=== PATIENT | male | born 1970 | race Caucasian/White ===

== ENCOUNTER 2017-09-04 15:36 | Emergency (ER) | payer OTHER ==
[~2017-09-04] VITALS: Ht 182.9 cm; Wt 95.8 kg
[2017-09-04 15:42] VITALS: Ht 182.9 cm; Wt 95.8 kg
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
[2017-09-04] MEDS ORDERED: DIPHTH/TET/ACEL PERTUSS (ADULT) 0.5 ML VIAL IM* ONE (20:00)
[2017-09-04 20:14] VITALS: BP 118/71; PULSE 71; RESP 18
== END 2017-09-04 20:16 | disposition home or self-care (01) ==
LOC: FTE 15:36
DX: S01.81XA Laceration without foreign body of other part of head, initial encounter (principal); S19.9XXA Unspecified injury of neck, initial encounter; V43.52XA Car driver injured in collision with other type car in traffic accident, initial encounter; Z23 Encounter for immunization
CPT/HCPCS: 70450; 72125; 73080; 90471; 90715; Z7502